=== PATIENT | female | born 1960 | race Caucasian/White ===

== ENCOUNTER → 2025-01-20 | Outpatient (CLI) | payer MEDICARE, OTHER, SELFPAY ==
--- NOTE | 2025-01-20 | XR_ITS ---
Examination: Knee, right , 3 views Technique: Knee AP, lateral, oblique 3 views Date and time of exam: January 20, 2025 1214 hours INDICATIONS: Patient fell 3 months ago with injury to the right knee, persistent right knee pain. FINDINGS: Prominent osteopenia Mild to moderate narrowing medial patellofemoral joints No fracture IMPRESSION: No acute fracture
--- NOTE | 2025-01-20 | XR_ITS ---
Examination: Lumbar spine, 5 views Technique: Lumbar spine AP, lateral, coned lateral lower lumbar spine, bilateral obliques 5 views Exam date and time: January 20, 2025 1221 hours INDICATIONS: Low back pain one month radiating down the left leg. FINDINGS: Prominent osteopenia Diffuse lumbar disc narrowing, advanced L4-L5 Moderate lumbar spondylosis No lumbar fracture Prominent facet arthropathy IMPRESSION: Diffuse lumbar degenerative disc disease, advanced L4-L5
--- NOTE | 2025-01-20 | XR_ITS ---
Examination:Left hip AP, lateral, AP pelvis 3 views Technique: Hip AP lateral, AP pelvis, 3 views Exam date and time:January 20, 2025 1214 hours INDICATIONS: Left hip pain one month. FINDINGS: Moderate narrowing left and right hip joints No hip or pelvic fracture IMPRESSION: Moderate narrowing left and right hip joints.
[2025-01-20 12:08] LABS: Basophils # (Auto) 0.1 Thou/mm3 (0.0-0.2); Basophils % (Auto) 1 % (0-2.5); Eosinophils # (Auto) 0.1 Thou/mm3 (0.0-0.5); Eosinophils % (Auto) 2 % (0-10); Hematocrit 43.6 % (36.0-46.0); Hemoglobin 14.4 g/dL (12.0-16.0); Immature Granulocytes % (Auto) 0 % (0-0); Immature Granulocytes Auto 0.02 Thou/mm3 (0.00-0.00); Lymphocytes # (Auto) 1.8 Thou/mm3 (1.0-4.8); Lymphocytes % (Auto) 30 % (10-50); Mean Corpuscular Hemoglobin 28.7 pg (25.0-35.0); Mean Corpuscular Volume 87 fL (80-100); Monocytes # (Auto) 0.5 Thou/mm3 (0.0-0.8); Monocytes % (Auto) 8 % (0-12); Neutrophils # (Auto) 3.5 Thou/mm3 (1.8-7.7); Neutrophils % (Auto) 59 % (37-80); Nucleated Red Blood Cell % 0 /100 WBC (0); Platelet Count 265 Thou/mm3 (140-440); RDW Standard Deviation 41.9 fL (36.4-46.3); Red Blood Count 5.01 Miln/mm3 (4.00-5.20); White Blood Count 5.9 Thou/mm3 (3.6-11.0)
[2025-01-20 12:13] LABS: Glucose Estimated Average 97 mg/dL (80-131)
[2025-01-20 12:18] LABS: Vitamin D 25 Hydroxy Total 20.5 ng/mL (7.3-40.2)
[2025-01-20 12:28] LABS: Alanine Aminotransferase 23 U/L (10-49); Albumin, Serum 4.6 gm/dL (3.4-4.8); Albumin/Globulin Ratio 1.8 (1.2-2.2); Alkaline Phosphatase 80 U/L (46-116); Anion Gap 10 (7-16); Aspartate Amino Transferase 23 U/L (0-34); BUN/Creatinine Ratio 19 Ratio (12-20); Bilirubin,Total 0.6 mg/dL (0.3-1.2); Blood Urea Nitrogen 15 mg/dL (9-23); Calcium 9.7 mg/dL (8.3-10.6); Calcium (Corrected) 9.7 mg/dL (8.5-10.1); Carbon Dioxide 27.4 mMol/L (20.0-31.0); Cardiac Risk Estimate 4.1 RATIO (3.7-5.6); Chloride 103 mMol/L (98-107); Cholesterol 233 mg/dL (132-200); Creatinine (Component) 0.8 mg/dL (0.6-1.3); Free T4 (Free Thyroxine) 1.43 ng/dL (0.89-1.76); Globulin 2.6 gm/dL (2.3-3.5); Glucose 99 mg/dL (74-106); HDL Cholesterol 57 mg/dL (40-60); LDL Cholesterol,Calculated 136 mg/dL (0-130); Osmolality,Calculated 280 (275-295); Potassium 4.4 mMol/L (3.4-5.1); Sodium 140 mMol/L (136-145); Thyroid Stimulating Hormone 1.79 uIU/mL (0.55-4.78); Total Protein 7.2 gm/dL (5.7-8.2); Triglycerides 200 mg/dL (30-150); eGFR > 60 See Note
== END | disposition home or self-care (01) ==
PROVIDERS: PCP Internal Medicine; Referring Provider Internal Medicine; Visit Provider Radiology Diagnostic Radiology
DX: M25.561 Pain in right knee (principal); M51.369 Other intervertebral disc degeneration, lumbar region without mention of lumbar back pain or lower extremity pain; M25.852 Other specified joint disorders, left hip; M25.851 Other specified joint disorders, right hip; M19.90 Unspecified osteoarthritis, unspecified site; E11.9 Type 2 diabetes mellitus without complications; E55.9 Vitamin D deficiency, unspecified; E78.2 Mixed hyperlipidemia; E03.9 Hypothyroidism, unspecified
CPT/HCPCS: 36415; 72110; 73502; 73562; 80053; 80061; 82306; 83036; 84439; 84443; 85025

== ENCOUNTER 2025-04-08 09:03 | Outpatient (AMB) | payer MEDICARE, OTHER, SELFPAY ==
[2025-04-08 09:18] VITALS: BP 121/59; PULSE 94; RESP 18; TEMP 36; O2SAT 97; BMI 31.3
--- NOTE | 2025-04-08 09:18 | PD.ORTHCLVIS ---
Vital signs 04/08/25 09:18 Height 1.7 m Height Method Measured Weight 90.718 kg Weight Measurement Method Estimated by Patient BMI 31.3 BP 121/59 L Blood Pressure Source Automatic Cuff Blood Pressure Location Left Upper Arm Position Sitting Respiration 18 Pulse 94 Pulse Source Monitor Temp 96.8 F Temp Source Temporal Artery Scan Pulse Oximetry (%) 97 Oxygen Delivery Method Room Air Med/Allergies Allergies & Medications Allergies No Known Allergies Allergy (Verified 04/08/25 09:20) Medication Reconciliation hydrocodone 5 mg-acetaminophen 325 mg tablet 1 tab PO Q6H PRN pain #20 tabs 10/05/20 [Rx Confirmed 04/08/25] paroxetine HCl 40 mg tablet 40 mg PO HS 10/05/20 [History Confirmed 04/08/25] meloxicam 7.5 mg tablet 7.5 mg PO QDAY #45 tabs 04/08/25 [Rx] Exam Exam Breathing is nonlabored. Patient has a normal mood and affect. Bilateral extremities were evaluated and demonstrates sensation intact to light touch. Palpable pedal pulses are present. No significant edema is present. Bilateral hips were examined. The patient has no pain with log roll of the hips. Internal rotation to 30 degrees and external rotation to 30 degrees is painless. Negative FADIR. Left knee was examined today. The left knee is in reasonable alignment. Range of motion from 0-120 degrees. Knee is stable to varus and valgus as well as AP translation with <5mm. Patient has a negative McMurrays. There is no pain with patellofemoral compression and no crepitus noted. The knee is nontender to palpation. The right knee was also examined. The right knee is in varus alignment. Range of motion from 0-115 degrees. Knee is stable to varus and valgus as well as AP translation with <5mm. Patient has a negative McMurrays. There is no pain with patellofemoral compression and no crepitus noted. The knee is tender to palpation medially. X-rays of the knee, lumbar spine, and left hip demonstrate preserved joint space in the left hip as well as the right knee. On the spine there is significant degenerative disc disease at L4-5 and L5-S1 Assessment and Plan Problem List (1) Lumbar stenosis: Status: Acute Plan: Patient is a pleasant 64-year-old female with spine, hip, and knee issues. On the left side I do him fairly confident that the pain is from her spine. He describes lumbar radiculopathy and she has a positive shopping cart sign. I will order an MRI. For the right knee, I will order right knee x-rays. Will send her a prescription for meloxicam. We Will likely do cortisone injections at the next visit Advanced Care Planning Discussion Advance care planning discussed with:: patient Office Procedures GNS Level of Care Nursing/Assessment Patient Status: Initial/New Patient Nursing Assessment/Reassesment: Medication Reconciliation, Orthostatic Vitals, Update PMH in EMR and Vital Signs Coordination of Care: Complex Care and Chronic Disease 1-5, Education Complex Pt/Fam, Consent,records obtained, informed consent, Lab and Imaging orders, Results/Orders obtained and Staff clarify orders New Patient Charge New Patient Point Assignment: 1119 New Patient Point Charge: ARC CUTTER Level 4 ([id number]) MA Intake Visit Data Collection New Patient or Established: New Patient (never been to [facility]) Reason for Visit:: RIGHT KNEE PAIN AND LEFT HIP PAIN Seen by Clinical Staff ONLY (RN/MA): No Optoelectronic Technician Required: No PCP or OBGYN visit in last 3 months: Yes Hx Now: No Do You Feel Safe at Home: Yes Authorities Contacted: N/A Questionairres Past Medical History Past Medical History Have you ever been diagnosed with any of the following: Neurological Problems Seizures: No Cardiology Problems Congestive Heart Failure: No Respiratory Problems Chronic Obstructive Pulmonary Disease (COPD): No Asthma: No Genital/Urinary Problems Renal Disease: No Endocrine Problems Diabetes Mellitus Type 1: No Diabetes Mellitus Type 2: No Blood Problems Sickle Cell Disease: No Psychologic Problems Depression: Yes Anxiety: Yes Other Problems Blood Transfusions: No Blood Transfusion Reaction: No Anesthesia Reactions: No Surgical History Hysterectomy: Yes (vaginal hysterectomy 30 years ago) Subjective Visit Visit for: new patient, hip and knee Immunization / Flu Flu Vaccine in the Last 12 Months: Yes Flu Vaccine Exclusion Criteria: Already Received History of Present Illness Chief complaint: RIGHT KNEE PAIN AND LEFT HIP PAIN Date of injury / onset of symptoms: RIGHT KNEE PAIN 3-4 MONTHS/LEFT HIP PAIN 6 YEARS Patient is a 64-year-old female with a left buttock pain that radiates all the way down her leg. This is described as a jolt. She also has right knee pain is primarily medial. This been ongoing for roughly 3 months. She has not any injections. She has tried ibuprofen and Tylenol Personal History Occupation: RETIRED Red flag PMH: none BMI Counceling provided: Yes Pain Pain level (0-10): 8 Pain location: groin and inside (medial) Pain quality: sharp and electric Pain timing: increases with activity and stairs Associated signs & symptoms: none Ambulatory data Ambulatory device: none Treatments Number of previous injections: 3 Improvement with previous injections: Yes Number of Physical Therapy sessions: 0 Improvement with PT: No Improvement with NSAIDS: yes Review of Systems Review of Systems: All systems negative unless otherwise noted in HPI.
--- NOTE | 2025-04-08 09:27 | XR_ITS ---
Examination: Bilateral AP knees standing single view Right knee PA lateral axial 3 views TECHNIQUE: Bilateral AP knees standing single view Right knee PA flexion standing, standing lateral, axial right knee 3 views total 4 views Date and time: April 08, 2025 0944 hours INDICATIONS: Right knee pain beginning 3 months ago. FINDINGS: Moderate osteopenia. Moderate narrowing medial joint space right knee Moderate osteoarthritis right patellofemoral joint Moderate narrowing medial joint space left knee Bilateral moderate narrowing lateral joint spaces IMPRESSION: Moderate narrowing medial and lateral joint spaces bilaterally Moderate osteoarthritis right patellofemoral joint
== END 2025-04-08 09:45 | disposition home or self-care (01) ==
LOC: HODSRG 09:03
PROVIDERS: PCP Internal Medicine; Referring Provider Internal Medicine; Supervising Provider Orthopaedic Surgery Adult Reconstructive Orthopaedic Surgery; Visit Provider Orthopaedic Surgery Adult Reconstructive Orthopaedic Surgery
DX: M48.061 Spinal stenosis, lumbar region without neurogenic claudication (principal); M25.561 Pain in right knee; M25.552 Pain in left hip; M17.11 Unilateral primary osteoarthritis, right knee
CPT/HCPCS: 73564; 99204; G0463

== ENCOUNTER → 2025-04-19 | Outpatient (CLI) | payer MEDICARE, OTHER, SELFPAY ==
--- NOTE | 2025-04-19 10:30 | XR_ITS ---
Exam: MRI knee without contrast, right Date and time of exam: April 19, 2025, 1115 hrs. Indications: Patient fell 2 months ago with injury to the knee followed by knee pain paresthesias stiffness swelling instability Technique: Multiple axial, coronal, and sagittal sections on the knee have been obtained. T2-Weighted sagittal, fat-suppressed images, TR 3,500, TE 62, T2 weighted coronal fat-saturated images, TR 3,500, TE 62 Proton density sagittal sections, TR 1800, TE 31. T-1 weighted coronal images, TR 524, TE 13.0 Findings: Medial meniscus anterior horn intact. Medial meniscus, body oblique linear tears. Posterior horn medial meniscus horizontal linear tear communicating inner margin. Lateral meniscus anterior horn is intact Lateral meniscus, body is intact Posterior horn lateral meniscus is intact Anterior cruciate ligament mild sprain Posterior cruciate ligament appears intact. Knee effusion is small. Quadriceps and patellar tendons appear intact. There is no evidence of tendinosis. Inflammatory change or fracture of Hoffa's fat pad is not seen. Medial patellar facet demonstrates severe thinning. Lateral patellar facet cartilage demonstrates moderate thinning. Trochlear cartilage demonstrates moderate thinning. Marrow signal increased about the medial joint space. Medial collateral ligament appears intact. Meniscocapsular separation body the medial meniscus. Illiotibial band and fibular collateral ligament are intact. Biceps femoris tendons appear intact. Medial femoral condylar articular cartilage demonstrates severe thinning. Lateral femoral condylar articular cartilage demonstratesmoderate thinning. Tibial plateau cartilage demonstrates severe medial thinning. Impression: Tears of the body and posterior horn medial meniscus Meniscocapsular separation body the medial meniscus Mild sprain anterior cruciate ligament
== END | disposition home or self-care (01) ==
LOC: SMRI 10:27
PROVIDERS: PCP Internal Medicine; Referring Provider Internal Medicine; Visit Provider Internal Medicine
DX: S83.241A Other tear of medial meniscus, current injury, right knee, initial encounter (principal); S83.194A Other dislocation of right knee, initial encounter; S83.511A Sprain of anterior cruciate ligament of right knee, initial encounter; W19.XXXA Unspecified fall, initial encounter
CPT/HCPCS: 73721

== ENCOUNTER 2025-05-01 11:16 | Outpatient (AMB) | payer MEDICARE, OTHER, SELFPAY ==
[2025-05-01 11:22] VITALS: BP 138/82; PULSE 89; RESP 19; TEMP 36.2; O2SAT 96; BMI 31.4
--- NOTE | 2025-05-01 11:22 | PD.ORTHCLVIS ---
Vital signs 05/01/25 11:22 Height 1.7 m Height Method Stated Weight 90.718 kg Weight Measurement Method Standing Scale BMI 31.4 BP 138/82 H Blood Pressure Source Automatic Cuff Blood Pressure Location Left Upper Arm Position Sitting Respiration 19 Pulse 89 Pulse Source Monitor Temp 97.1 F Temp Source Temporal Artery Scan Pulse Oximetry (%) 96 Oxygen Delivery Method Room Air Med/Allergies Allergies & Medications Allergies No Known Allergies Allergy (Verified 05/01/25 11:26) Medication Reconciliation hydrocodone 5 mg-acetaminophen 325 mg tablet 1 tab PO Q6H PRN pain #20 tabs 10/05/20 [Rx Confirmed 05/01/25] paroxetine HCl 40 mg tablet 40 mg PO HS 10/05/20 [History Confirmed 05/01/25] meloxicam 7.5 mg tablet 7.5 mg PO QDAY #45 tabs 04/08/25 [Rx Confirmed 05/01/25] Exam Exam Breathing is nonlabored. Patient has a normal mood and affect. Bilateral extremities were evaluated and demonstrates sensation intact to light touch. Palpable pedal pulses are present. No significant edema is present. Bilateral hips were examined. The patient has no pain with log roll of the hips. Internal rotation to 30 degrees and external rotation to 30 degrees is painless. Negative FADIR. Left knee was examined today. The left knee is in reasonable alignment. Range of motion from 0-120 degrees. Knee is stable to varus and valgus as well as AP translation with <5mm. Patient has a negative McMurrays. There is no pain with patellofemoral compression and no crepitus noted. The knee is nontender to palpation. The right knee was also examined. The right knee is in varus alignment. Range of motion from 0-115 degrees. Knee is stable to varus and valgus as well as AP translation with <5mm. Patient has a negative McMurrays. There is no pain with patellofemoral compression and no crepitus noted. The knee is tender to palpation medially. X-rays of the knee, lumbar spine, and left hip demonstrate preserved joint space in the left hip as well as the right knee. On the spine there is significant degenerative disc disease at L4-5 and L5-S1 Assessment and Plan Problem List (1) Lumbar stenosis: Status: Acute Plan: Patient is a pleasant 64-year-old female with spine, hip, and knee issues. She has right knee pain and would like a right knee cortisone injection Recommend knee cortisone injection as patient would like to proceed with conservative treatment at this time. The risks and benefits of the procedure were reviewed with the patient and patient gave verbal consent to continue with the procedure. Procedure: performed by Dr. Amin Using sterile technique the Right knee was thoroughly prepped with alcohol, and approximately 1 cc of Depo-Medrol 80mg/mL and 4 cc of 0.2% ropivacaine was injected without resistance into the medial tibial femoral joint space. The patient tolerated the procedure. (2) Arthritis of knee, right: Status: Acute Advanced Care Planning Discussion Advance care planning discussed with:: patient Office Procedures GNS Level of Care Nursing/Assessment Patient Status: Established Patient Nursing Assessment/Reassesment: Medication Reconciliation, Update PMH in EMR and Vital Signs Coordination of Care: Complex Care and Chronic Disease 1-5, Education Complex Pt/Fam, Consent,records obtained, informed consent, Results/Orders obtained and Staff clarify orders Established Patient Charge Established Patient Point Assignment: 95 Established Patient Point Charge: EP Level 3 (80-115) Surgical Proc/IM SQ injection Minor Surgical Procedure: Yes (KNEE INJECTION) Medication Given Medication Given Medication Given: Yes Documented Dose Given: 1 Route: Infiitration Medication Given Medication Given Medication Given: Yes Documented Dose Given: 4 Route: Infiitration Office Meds methylprednisolone acetate 80 mg/mL suspension for injection Performing Provider: Aleksander Amin MD Performing Location: [facility] Administered by: Aleksander Amin MD on 05/01/25 11:35 Dose Route Admin Location Dispensed Lot Number Expiration Date Package [facility] Public [employer] Dietitian 80 mg intra-articular KNEE 1 mL [id number] 07/06/26 [address]-8 [id number] [employer] ropivacaine (PF) 2 mg/mL (0.2 %) injection solution Performing Provider: Aleksander Amin MD Performing Location: [facility] Administered by: Aleksander Amin MD on 05/01/25 11:35 Dose Route Admin Location Dispensed Lot Number Expiration Date Package [facility] [employer] Public Health Dietitian 20 mL Infiltration KNEE 20 mL [id number] 09/06/27 98854-231-58 [id number] [facility] Intake Visit Data Collection New Patient or Established: Established Patient (seen at [facility] within 3 years) Reason for Visit:: XRAY RESULTS KNEE/HIP Seen by Clinical Staff ONLY (RN/MA): No Registered Route Associate Required: No PCP or OBGYN visit in last 3 months: Yes Hx Now: No Do You Feel Safe at Home: Yes Authorities Contacted: N/A Questionairres Past Medical History Past Medical History Have you ever been diagnosed with any of the following: Neurological Problems Seizures: No Cardiology Problems Congestive Heart Failure: No Respiratory Problems Chronic Obstructive Pulmonary Disease (COPD): No Asthma: No Genital/Urinary Problems Renal Disease: No Endocrine Problems Diabetes Mellitus Type 1: No Diabetes Mellitus Type 2: No Blood Problems Sickle Cell Disease: No Psychologic Problems Depression: Yes Anxiety: Yes Other Problems Blood Transfusions: No Blood Transfusion Reaction: No Anesthesia Reactions: No Surgical History Hysterectomy: Yes (vaginal hysterectomy 30 years ago) Subjective Visit Visit for: follow up visit, hip, knee and x-rays (RESULTS) Immunization / Flu Flu Vaccine in the Last 12 Months: Yes Flu Vaccine Exclusion Criteria: Already Received History of Present Illness Chief complaint: RIGHT KNEE PAIN AND LEFT HIP PAIN Date of injury / onset of symptoms: RIGHT KNEE PAIN 3-4 MONTHS/LEFT HIP PAIN 6 YEARS Patient is a 64-year-old female with a left buttock pain that radiates all the way down her leg. This is described as a jolt. She also has right knee pain is primarily medial. This been ongoing for roughly 3 months. She has not any injections. She has tried ibuprofen and Tylenol. she would like a cortisone injection on her right knee Personal History Occupation: RETIRED Red flag PMH: none BMI Counceling provided: Yes Pain Pain level (0-10): 8 Pain location: groin and inside (medial) Pain quality: sharp and electric Pain timing: increases with activity and stairs Associated signs & symptoms: none Ambulatory data Ambulatory device: none Treatments Number of previous injections: 3 Improvement with previous injections: Yes Number of Physical Therapy sessions: 0 Improvement with PT: No Improvement with NSAIDS: yes Review of Systems Review of Systems: All systems negative unless otherwise noted in HPI.
== END 2025-05-01 11:38 | disposition home or self-care (01) ==
LOC: HODSRG 11:16
PROVIDERS: PCP Internal Medicine; Referring Provider Internal Medicine; Supervising Provider Orthopaedic Surgery Adult Reconstructive Orthopaedic Surgery; Visit Provider Orthopaedic Surgery Adult Reconstructive Orthopaedic Surgery
DX: M48.061 Spinal stenosis, lumbar region without neurogenic claudication (principal); M25.561 Pain in right knee; M17.11 Unilateral primary osteoarthritis, right knee
CPT/HCPCS: 20610; 99213; J1010; J2795; G0463

== ENCOUNTER 2025-06-10 14:36 | Outpatient (AMB) | payer MEDICARE, OTHER, SELFPAY ==
--- NOTE | 2025-06-10 14:57 | ORTHONT_ITS ---
Vital signs 06/10/25 15:02 Height 1.7 m Height Method Stated Weight 90.718 kg Weight Measurement Method Estimated by Patient BMI 31.4 BP 133/82 H Blood Pressure Source Automatic Cuff Blood Pressure Location Left Upper Arm Position Sitting Respiration 18 Pulse 94 Pulse Source Monitor Temp 97.2 F Temp Source Temporal Artery Scan Pulse Oximetry (%) 94 L Oxygen Delivery Method Room Air Med/Allergies Allergies & Medications Allergies No Known Allergies Allergy (Verified 06/10/25 15:05) Medication Reconciliation hydrocodone 5 mg-acetaminophen 325 mg tablet 1 tab PO Q6H PRN pain #20 tabs 10/05/20 [Rx Confirmed 06/10/25] paroxetine HCl 40 mg tablet 40 mg PO HS 10/05/20 [History Confirmed 06/10/25] meloxicam 7.5 mg tablet 7.5 mg PO QDAY #45 tabs 04/08/25 [Rx Confirmed 06/10/25] Exam Exam Breathing is nonlabored. Patient has a normal mood and affect. Bilateral extremities were evaluated and demonstrates sensation intact to light touch. Palpable pedal pulses are present. No significant edema is present. Bilateral hips were examined. The patient has no pain with log roll of the hips. Internal rotation to 30 degrees and external rotation to 30 degrees is painless. Negative FADIR. Left knee was examined today. The left knee is in reasonable alignment. Range of motion from 0-120 degrees. Knee is stable to varus and valgus as well as AP translation with <5mm. Patient has a negative McMurrays. There is no pain with patellofemoral compression and no crepitus noted. The knee is nontender to palpation. The right knee was also examined. The right knee is in varus alignment. Range of motion from 0-115 degrees. Knee is stable to varus and valgus as well as AP translation with <5mm. Patient has a negative McMurrays. There is no pain with patellofemoral compression and no crepitus noted. The knee is tender to palpation medially. X-rays of the knee, lumbar spine, and left hip demonstrate preserved joint space in the left hip as well as the right knee. On the spine there is significant degenerative disc disease at L4-5 and L5-S1 Assessment and Plan Problem List (1) Lumbar stenosis: Status: Acute Plan: Patient is a pleasant 64-year-old female with spine, hip, and knee issues. we discussed a left hip trochanteric bursa injection. I would also like to get a left hip intra-articular injection and we will order this recommend hip bursa cortisone injection as patient would like to proceed with conservative treatment at this time. The risks and benefits of the procedure were reviewed with the patient and patient gave verbal consent to continue with the procedure. Procedure: performed by Dr. Amin Using sterile technique the left hip bursa was thoroughly prepped with alcohol prep, and approximately 1 cc of Depo-Medrol 80 and 4 cc of and 0.25% ropivacaine was injected without resistance. The patient tolerated the procedure well. (2) Arthritis of knee, right: Status: Acute Advanced Care Planning Discussion Advance care planning discussed with:: patient Office Procedures GNS Level of Care Nursing/Assessment Patient Status: Established Patient Nursing Assessment/Reassesment: Medication Reconciliation, Update PMH in EMR and Vital Signs Coordination of Care: Complex Care and Chronic Disease 1-5, Education Complex Pt/Fam, Consent,records obtained, informed consent, Results/Orders obtained and Staff clarify orders Established Patient Charge Established Patient Point Assignment: 95 Established Patient Point Charge: EP Level 3 (80-115) Surgical Proc/IM SQ injection Minor Surgical Procedure: Yes (LEFT HIP PAIN ) Medication Given Medication Given Medication Given: Yes Documented Dose Given: 1 Route: Infiitration Medication Given Medication Given Medication Given: Yes Documented Dose Given: 4 Route: Infiitration Office Meds methylprednisolone acetate 80 mg/mL suspension for injection Performing Provider: Aleksander Amin MD Performing Location: [facility] Administered by: Aleksander Amin MD on 06/10/25 15:30 Dose Route Admin Location Dispensed Lot Number Expiration Date Pack age [facility] Blackjack Pit Boss 80 mg intra-articular HIP 1 mL [id number] 03/06/27 [address]-4 [id number] [employer] ropivacaine (PF) 2 mg/mL (0.2 %) injection solution Performing Provider: Aleksander Amin MD Performing Location: [facility] Administered by: Aleksander Amin MD on 06/10/25 15:30 Dose Route Admin Location Dispensed Lot Number Expiration Date Pack age [facility] [employer] Pit Boss 20 mL Infiltration HIP 20 mL [id number] 09/06/27 14923-525-80 [id number] [facility] Intake Visit Data Collection New Patient or Established: Established Patient (seen at [facility] within 3 years) Reason for Visit:: XRAY RESULTS KNEE/HIP Seen by Clinical Staff ONLY (RN/MA): No Hydrochloric Manufacturing Supervisor Required: No PCP or OBGYN visit in last 3 months: Yes Hx Now: No Do You Feel Safe at Home: Yes Authorities Contacted: N/A Questionairres Past Medical History Past Medical History Have you ever been diagnosed with any of the following: Neurological Problems Seizures: No Cardiology Problems Congestive Heart Failure: No Respiratory Problems Chronic Obstructive Pulmonary Disease (COPD): No Asthma: No Genital/Urinary Problems Renal Disease: No Endocrine Problems Diabetes Mellitus Type 1: No Diabetes Mellitus Type 2: No Blood Problems Sickle Cell Disease: No Psychologic Problems Depression: Yes Anxiety: Yes Other Problems Blood Transfusions: No Blood Transfusion Reaction: No Anesthesia Reactions: No Surgical History Hysterectomy: Yes (vaginal hysterectomy 30 years ago) Subjective Visit Visit for: follow up visit, hip, knee and x-rays (RESULTS) Immunization / Flu Flu Vaccine in the Last 12 Months: Yes Flu Vaccine Exclusion Criteria: Already Received History of Present Illness Chief complaint: RIGHT KNEE PAIN AND LEFT HIP PAIN Date of injury / onset of symptoms: RIGHT KNEE PAIN 3-4 MONTHS/LEFT HIP PAIN 6 YEARS Patient is a 64-year-old female with a left buttock pain that radiates all the way down her leg. This is described as a jolt. She also has right knee pain is primarily medial. This been ongoing for roughly 3 months. She has not any injections. She has tried ibuprofen and Tylenol. she would like a cortisone injection on her right knee. the right knee injection only helped somewhat. She has a lot of pain on her left hip. She has pain in the left groin as well as the left outer aspect of her hip. She has difficulty on her left side. She reports that she has had a history of issues there and has had both intra- articular hip injections as well as bursitis injections Personal History Occupation: RETIRED Red flag PMH: none BMI Counceling provided: Yes Pain Pain level (0-10): 8 Pain location: groin and inside (medial) Pain quality: sharp and electric Pain timing: increases with activity and stairs Associated signs & symptoms: none Ambulatory data Ambulatory device: none Treatments Number of previous injections: 3 Improvement with previous injections: Yes Number of Physical Therapy sessions: 0 Improvement with PT: No Improvement with NSAIDS: yes Review of Systems Review of Systems: All systems negative unless otherwise noted in HPI.
[2025-06-10 15:02] VITALS: BP 133/82; PULSE 94; RESP 18; TEMP 36.2; O2SAT 94; BMI 31.4
== END 2025-06-10 15:25 | disposition home or self-care (01) ==
LOC: HODSRG 14:36
PROVIDERS: PCP Internal Medicine; Referring Provider Internal Medicine; Supervising Provider Orthopaedic Surgery Adult Reconstructive Orthopaedic Surgery; Visit Provider Orthopaedic Surgery Adult Reconstructive Orthopaedic Surgery
DX: M25.552 Pain in left hip (principal); M25.561 Pain in right knee; M70.62 Trochanteric bursitis, left hip; M17.11 Unilateral primary osteoarthritis, right knee; M48.061 Spinal stenosis, lumbar region without neurogenic claudication
CPT/HCPCS: 20610; 99213; J1010; J2795; G0463

== ENCOUNTER 2025-07-22 07:59 | Outpatient (AMB) | payer MEDICARE, OTHER, SELFPAY ==
--- NOTE | 2025-07-22 08:12 | ORTHONT_ITS ---
Vital signs 07/22/25 08:13 Height 1.7 m Height Method Measured Weight 90.718 kg Weight Measurement Method Standing Scale BMI 31.4 BP 121/80 Blood Pressure Source Automatic Cuff Blood Pressure Location Left Upper Arm Position Sitting Respiration 18 Pulse 96 Pulse Source Monitor Temp 97.2 F Temp Source Temporal Artery Scan Pulse Oximetry (%) 97 Oxygen Delivery Method Room Air Med/Allergies Allergies & Medications Allergies No Known Allergies Allergy (Verified 07/22/25 08:14) Medication Reconciliation hydrocodone 5 mg-acetaminophen 325 mg tablet 1 tab PO Q6H PRN pain #20 tabs 10/05/20 [Rx Confirmed 07/22/25] paroxetine HCl 40 mg tablet 40 mg PO HS 10/05/20 [History Confirmed 07/22/25] meloxicam 7.5 mg tablet 7.5 mg PO QDAY #45 tabs 04/08/25 [Rx Confirmed 07/22/25] meloxicam 7.5 mg tablet 7.5 mg PO QDAY #30 tabs 07/01/25 [Rx Confirmed 07/22/25] pregabalin 75 mg capsule (Lyrica) 75 mg PO BID #60 caps 07/22/25 [Rx] Exam Exam Breathing is nonlabored. Patient has a normal mood and affect. Bilateral extremities were evaluated and demonstrates sensation intact to light touch. Palpable pedal pulses are present. No significant edema is present. Bilateral hips were examined. The patient has no pain with log roll of the hips. Internal rotation to 30 degrees and external rotation to 30 degrees is painless. Negative FADIR. Left knee was examined today. The left knee is in reasonable alignment. Range of motion from 0-120 degrees. Knee is stable to varus and valgus as well as AP translation with <5mm. Patient has a negative McMurrays. There is no pain with patellofemoral compression and no crepitus noted. The knee is nontender to palpation. The right knee was also examined. The right knee is in varus alignment. Range of motion from 0-115 degrees. Knee is stable to varus and valgus as well as AP translation with <5mm. Patient has a negative McMurrays. There is no pain with patellofemoral compression and no crepitus noted. The knee is tender to palpation medially. X-rays of the knee, lumbar spine, and left hip demonstrate preserved joint space in the left hip as well as the right knee. On the spine there is significant degenerative disc disease at L4-5 and L5-S1 Assessment and Plan Problem List (1) Lumbar stenosis: Status: Acute Plan: Patient is a pleasant 64-year-old female with spine, hip, and knee issues. she did receive great relief with either of the hip injections. I do think the pain traveling down her legs from her back. I recommend referral to a spine surgeon or paint tester. For her right knee, we will continue to treat her nonoperatively. She did great with the last knee injection (2) Arthritis of knee, right: Status: Acute Advanced Care Planning Discussion Advance care planning discussed with:: patient Office Procedures GNS Level of Care Nursing/Assessment Patient Status: Established Patient Nursing Assessment/Reassesment: Medication Reconciliation, Update PMH in EMR and Vital Signs Coordination of Care: Complex Care and Chronic Disease 1-5, Education Complex Pt/Fam, Consent,records obtained, informed consent, Results/Orders obtained and Staff clarify orders Established Patient Charge Established Patient Point Assignment: 95 Established Patient Point Charge: EP Level 3 (80-115) MA Intake Visit Data Collection New Patient or Established: Established Patient (seen at [facility] within 3 years) Reason for Visit:: HIP PAIN Seen by Clinical Staff ONLY (RN/MA): No Potash Flaker Required: No PCP or OBGYN visit in last 3 months: Yes Hx Now: No Do You Feel Safe at Home: Yes Authorities Contacted: N/A Questionairres Past Medical History Past Medical History Have you ever been diagnosed with any of the following: Neurological Problems Seizures: No Cardiology Problems Congestive Heart Failure: No Respiratory Problems Chronic Obstructive Pulmonary Disease (COPD): No Asthma: No Genital/Urinary Problems Renal Disease: No Endocrine Problems Diabetes Mellitus Type 1: No Diabetes Mellitus Type 2: No Blood Problems Sickle Cell Disease: No Psychologic Problems Depression: Yes Anxiety: Yes Other Problems Blood Transfusions: No Blood Transfusion Reaction: No Anesthesia Reactions: No Surgical History Hysterectomy: Yes (vaginal hysterectomy 30 years ago) Subjective Visit Visit for: follow up visit and hip Immunization / Flu Flu Vaccine in the Last 12 Months: Yes Flu Vaccine Exclusion Criteria: Already Received History of Present Illness Chief complaint: HIP PAIN Date of injury / onset of symptoms: RIGHT KNEE PAIN 3-4 MONTHS/LEFT HIP PAIN 6 YEARS Patient is a 64-year-old female with a left buttock pain that radiates all the way down her leg. This is described as a jolt. She also has right knee pain is primarily medial. This been ongoing for roughly 3 months. She has not any injections. She did well with a right knee cortisone injection. She is continues to have pain especially buttocks and radiates down her foot. She does have a spine MRI Personal History Occupation: RETIRED Red flag PMH: none BMI Counceling provided: Yes Pain Pain level (0-10): 8 Pain location: groin and inside (medial) Pain quality: sharp and electric Pain timing: increases with activity and stairs Associated signs & symptoms: none Ambulatory data Ambulatory device: none Treatments Number of previous injections: 3 Improvement with previous injections: Yes Number of Physical Therapy sessions: 0 Improvement with PT: No Improvement with NSAIDS: yes Review of Systems Review of Systems: All systems negative unless otherwise noted in HPI.
[2025-07-22 08:13] VITALS: BP 121/80; PULSE 96; RESP 18; TEMP 36.2; O2SAT 97; BMI 31.4
== END 2025-07-22 08:45 | disposition home or self-care (01) ==
LOC: HODSRG 07:59
PROVIDERS: PCP Internal Medicine; Referring Provider Internal Medicine; Supervising Provider Orthopaedic Surgery Adult Reconstructive Orthopaedic Surgery; Visit Provider Orthopaedic Surgery Adult Reconstructive Orthopaedic Surgery
DX: M48.061 Spinal stenosis, lumbar region without neurogenic claudication (principal); M51.369 Other intervertebral disc degeneration, lumbar region without mention of lumbar back pain or lower extremity pain; M17.11 Unilateral primary osteoarthritis, right knee
CPT/HCPCS: 99213; G0463